=== PATIENT | female | born 1940 | race Caucasian/White ===

== ENCOUNTER 2022-12-06 19:30 | Emergency (ER) | payer OTHER, MEDICARE ==
--- OUTSIDE RECORDS SUMMARY | 2022-12-06 19:33 | XMS REPORT | Continuity of Care Document ---
:1940 Author Organization [facility] Address [address] [facility]. [address] [place] [address] Care Team Providers Name Role Phone Asked, No Pcp Primary Care Physician Unavailable Kevin Mercado MD Attending Clinician Problems This patient has no known problems. Allergies, Adverse Reactions, Alerts This patient has no known allergies or adverse reactions. Social History Social Habit Start Date Stop Date Quantity Comments Source Sexual orientation Method [facility] Sex Assigned At [birth year] Met [facility] 00:00:00 00:00:00 Smoking Status Start Date Stop Date Source Tobacco smoking consumption unknown [facility] Medications This patient has no known medications. Procedures Procedure Date / Time Performed Performing Clinician [facility] e US VASCULAR SCREENING 2022-05-02 18:19[facility] W 2022-05-02 18:16:39 [facility] PHYSICIAN ORDER Plan of Care Planned Activity Planned Date Details Comments Source Future Scheduled 2022-12-06 SHINGLES VACCINES (1 Met [facility] Test 19:32:59 of 2) [code = SHINGLES VACCINES (1 of 2)] Future Scheduled 2022-12-06 65+ PNEUMOCOCCAL [facility] Test 19:32:59 VACCINE (1 - PCV) [code = 65+ PNEUMOCOCCAL VACCINE (1 - PCV)] Future Scheduled 2022-12-06 COVID-19 VACCINE (3 - Me [facility] Test 19:32:59 Moderna series) [code = COVID-19 VACCINE (3 - Moderna series)] Future Scheduled 2022-12-06 INFLUENZA VACCINE (#1) M [facility] Test 19:32:59 [code = INFLUENZA VACCINE (#1)] Encounters Start End Encounter Admission Attending Care Care Encounter Source Date/Time Date/Time Type Type Clinicians Facility Department ID 2022-05-02 2022-05-02 [facility] 1.2.840.1 [id number] Methodi 10:40:18 23:59:00 Encounter Kevin [id number] 3.430.2.7 Hospit a .3.546358 l .8 2022-05-02 2022-05-02 [facility] 1.2.840.1 [id number] Methodi 10:39:59 10:39:59 Encounter Kevin [id number] 3.430.2.7 Hospit a .3.125185 l .8 2022-05-02 2022-05-02 Outpatient [facility] [id number] [place] 00:00:00 00:00:00 KEVIN [address] 2022-05-02 2022-05-02 Outpatient [facility] [id number] [address] [place] [address] 00:00:00 00:00:00 KEVIN [address] 2022-05-02 2022-05-02 Travel 1.2.840.1 [id number] Methodi 00:00:00 00:00:[id number] 3.430.2.7 0.2.7.3.698 spita .3.326100 084.8 l .8 2022-04-10 2022-04-10 Transcribe [facility] 1.2.840.1 [id number] Methodi 00:00:00 00:00:00 Orders Kevin [id number] 3.430.2.7 Hospit a .3.094528 l .8 2022-04-10 2022-04-10 Travel 1.2.840.1 [id number] [id number] Methodi 00:00:00 00:00:[address] 3.430.2.7 0.2.7.3.698 gisela .3.455113 084.8 l .8 Results This patient has no known results.
--- NOTE | 2022-12-06 20:35 | RAD REPORT ---
EXAM DESCRIPTION: CT - Chest For Pe Angio - 12/06/2022 8:07 pm CLINICAL HISTORY: cough,sob COMPARISON: 2013 TECHNIQUE: Dynamically enhanced axial 3 mm thick images of the chest were obtained during administra tion of 100 mL Isovue 370 IV contrast. Coronal and oblique reconstruction images were generated and r eviewed. Exam utilizes a protocol for optimal evaluation of pulmonary arterial tree. Maximum intensity projections 3D imaging was utilized All CT scans are performed using dose optimization technique as appropriate and may include automated exposure control or mA/KV adjustment according to patient size. FINDINGS: A pulmonary embolus is not seen. A thoracic aortic aneurysm is not noted. A pericardial effusion is not seen. 7 x 2 centimeter opacity is present within medial left lower lobe unchanged from prior exam. A branch from the descending thoracic aorta supplies the arterial flow. A vein and and drains into azygos vei n. This is compatible with a sequestration. Mild to moderate patchy opacities are present the left lung. 3 centimeter fluid collection is loculated within the left oblique fissure. IMPRESSION: Negative for a pulmonary embolism. Mild to moderate left pulmonary opacities probably pneumonia Left lower lobe sequestration 3 centimeter fluid collection loculated within the left oblique fissure
--- NOTE | 2022-12-06 21:11 | EDPHYS ---
Physician Documentation [facility] Name: Saima Anders Age: 82 yrs Sex: Female : 1940 Arrival Date: 12/06/2022 Time: 19:30 Bed 9 Private MD: JATIN Physician Mendoza Jeff HPI: 12/06 20:06 This 82 yrs old Female presents to ER via Ambulatory with complaints of ABNORMAL BLOOD kb WORK. 20:07 The patient or guardian reports cough, that is intermittent, described as mild, kb difficulty breathing. Onset: The symptoms/episode began/occurred 2 week(s) ago. Severity of symptoms: At their worst the symptoms were moderate, in the emergency department the symptoms have improved. Modifying factors: The symptoms are alleviated by nothing, the symptoms are aggravated by nothing. Associated signs and symptoms: The patient has no apparent associated signs or symptoms. The patient has not experienced similar symptoms in the past. The patient has not recently seen a physician. Pt reports she has had cough and slight shortness of breath since going to [place] 2 weeks ago. States the symptoms are getting better, but Dr Mercado ordered outpatient labs and x-ray today. States her d-dimer was high so she was told to come to the ER for further evaluation. Historical: - Allergies: 19:47 No Known Allergies; cm10 - PMHx: 19:47 Hypertensive disorder; kidney stones; Basal cell cancer; cm10 - PSHx: 19:47 hysterectomy; Wedge resection; Gastric Bypass; cm10 - Immunization history:: Adult Immunizations up to date. - Social history:: Smoking status: Patient denies any tobacco usage or history of. ROS: 20:04 Constitutional: Negative for fever, chills, and weight loss, kb 20:04 Respiratory: Positive for cough, shortness of breath, 20:04 All other systems are negative, Exam: 20:04 Constitutional: This is a well developed, well nourished patient who is awake, alert, kb and in no acute distress. Head/Face: Normocephalic, atraumatic. ENT: Moist Mucous membranes Cardiovascular: Regular rate Respiratory: Respirations even and unlabored. No increased work of breathing. Talking in full sentences Skin: Warm, dry with normal turgor. Normal color. MS/ Extremity: Pulses equal, no cyanosis. Neurovascular intact. Full, normal range of motion. Neuro: Awake and alert, GCS 15, oriented to person, place, time, and situation. Moves all extremities. Normal gait. Vital Signs: 19:45 BP 167 / 96; Pulse 88; Resp 18 S; Temp 97.8(TE); Pulse Ox 97% on R/A; Weight 71.21 kg; cm10 Height 5 ft. 3 in. ; Pain 2/10; 21:12 BP 158 / 86; Pulse 84; Resp 16; Pulse Ox 98% on R/A; mb9 19:45 Body Mass Index 27.81 (71.21 kg, 160.02 cm) cm10 19:45 Pain Scale: Adult cm10 MDM: 19:50 Patient medically screened. kb 20:04 Data reviewed: vital signs, nurses notes. External Records Reviewed: Outpatient labs: outpatient cbc, bmp and ddimer reviewed. Outpatient radiology: outpatient chest x-ray reviewed. 21:08 Differential Diagnosis: Bronchitis Upper Respiratory Infection Pneumonia Other PE. kb Consideration of Admission/Observation Escalation of care including admission/observation considered. admission considered for pneumonia, but pt is well appearing, afebrile, wants to go home. Management of patient was discussed with the following: Primary Care Provider: Dr Mercado, recommends outpatient follow up and rx for zithromax. Counseling: I had a detailed discussion with the patient and/or guardian regarding the historical points, exam findings, and any diagnostic results supporting the discharge/admit diagnosis, radiology results, the need for outpatient follow up, a family practitioner, to return to the emergency department if symptoms worsen or persist or if there are any questions or concerns that arise at home. 12/06 19:50 Order name: CT Chest For PE Angio; Complete Time: 20:37 kb 12/06 20:50 Order name: Extrem Venous W Compress Geraldo EDMS 12/06 19:50 Order name: IV Start; Complete Time: 19:58 kb Administered Medications: No medications were administered Disposition Summary: 12/06/22 21:10 Discharge Ordered Notes: Location: Home kb Condition: Stable kb Diagnosis - Pneumonia, unspecified organism kb Followup: kb - With: Emergency Department - When: As needed - Reason: Worsening of condition Followup: kb - With: Private Physician - When: 2 - 3 days - Reason: Recheck today's complaints, Continuance of care, Re-evaluation by your physician Discharge Instructions: - Discharge Summary Sheet kb - Community-Acquired Pneumonia, Adult, [id number] kb Forms: - Medication Reconciliation Form kb - Thank You Letter kb - Antibiotic Education kb - Prescription Opioid Use kb - Patient Portal Instructions kb - Leadership Thank You Letter kb Prescriptions: - Zithromax 500 mg Oral Tablet - take 1 tablet ORAL route once daily for 5 days; 5 tablet; Refills: 0, Product kb Selection Permitted Signatures: Dispatcher [employer] EDEly Wolf FNP-Erickson RIVERA-Terra Batista, RN RN cm10 Corrections: (The following items were deleted from the chart) 20:48 20:47 Lower Extremity Arterial Bilat+US.RAD.BRZ ordered. EDMS EDMS
--- NOTE | 2022-12-06 21:11 | ER ---
Nurse's Notes [facility] Name: Saima Anders Age: 82 yrs Sex: Female : 1940 Arrival Date: 12/06/2022 Time: 19:30 Bed 9 Private MD: Diagnosis: Pneumonia, unspecified organism Presentation: 12/06 19:45 Chief complaint: Patient states: was called by Dr. faye to come to the ED for elevated cm10 D-Dimer (2250). Pt states that she has been sick for the last 10 days and has been on abx. Pt reports that she is having shortness of breath, and dry cough. Pt states that she is having left sided "pleurisy type pain." Pt denies chest pain. Coronavirus screen: Vaccine status: Patient reports receiving the 2nd dose of the covid vaccine. Client denies travel out of the [place] in the last 14 days. Ebola Screen: Patient denies travel to an Ebola-affected area in the 21 days before illness onset. No symptoms or risks identified at this time. Initial Sepsis Screen: Does the patient meet any 2 criteria? No. Patient's initial sepsis screen is negative. Does the patient have a suspected source of infection? No. Patient's initial sepsis screen is negative. Risk Assessment: Do you want to hurt yourself or someone else? Patient reports no desire to harm self or others. Onset of symptoms was December 06, 2022. 19:45 Method Of Arrival: Ambulatory cm10 19:45 Acuity: GARTH 3 cm10 Triage Assessment: 19:50 General: Appears in no apparent distress. comfortable, Behavior is calm, cooperative. cm10 Neuro: No deficits noted. Level of Consciousness is awake, alert, obeys commands, Oriented to person, place, time, situation. Historical: - Allergies: 19:47 No Known Allergies; cm10 - PMHx: 19:47 Hypertensive disorder; kidney stones; Basal cell cancer; cm10 - PSHx: 19:47 hysterectomy; Wedge resection; Gastric Bypass; cm10 - Immunization history:: Adult Immunizations up to date. - Social history:: Smoking status: Patient denies any tobacco usage or history of. Screenin:06 [facility] ED Fall Risk Assessment (Adult) History of falling in the last 3 months, mb9 including since admission No falls in past 3 months (0 pts) Confusion or Disorientation No (0 pts) Intoxicated or Sedated No (0 pts) Impaired Gait No (0 pts) Mobility Assist Device Used No (0 pt) Altered Elimination No (0 pt) Score/Fall Risk Level 0 - 2 = Low Risk Oriented to surroundings, Maintained a safe environment, Educated pt \\T\\ family on fall prevention, incl call for assistance when getting out of bed. Abuse screen: Denies threats or abuse. Nutritional screening: No deficits noted. Tuberculosis screening: No symptoms or risk factors identified. Assessment: 20:06 Reassessment: pt taken to CT via stretcher. mb9 21:11 Reassessment: No changes from previously documented assessment. Patient and/or family mb9 updated on plan of care and expected duration. Pain level reassessed. Patient is alert, oriented x 3, equal unlabored respirations, skin warm/dry/pink. Vital Signs: 19:45 BP 167 / 96; Pulse 88; Resp 18 S; Temp 97.8(TE); Pulse Ox 97% on R/A; Weight 71.21 kg; cm10 Height 5 ft. 3 in. ; Pain 2/10; 21:12 BP 158 / 86; Pulse 84; Resp 16; Pulse Ox 98% on R/A; mb9 19:45 Body Mass Index 27.81 (71.21 kg, 160.02 cm) cm10 19:45 Pain Scale: Adult cm10 ED Course: 19:32 Patient arrived in ED. ag3 19:47 Triage completed. cm10 19:50 Ely Dave FNP-C [facility] kb 19:50 Mendoza Jeff MD is Attending Physician. kb 19:50 Arm band placed on Patient placed in an exam room, on a stretcher. cm10 19:58 Inserted saline lock: 22 gauge in left forearm, using aseptic technique. lg3 20:06 Placed in gown. Bed in low position. Call light in reach. Side rails up X 1. Client mb9 placed on continuous cardiac and pulse oximetry monitoring. NIBP monitoring applied. 20:08 CT Chest For PE Angio In Process Unspecified. EDMS 21:11 Michaela Spencer, SUSAN is Primary Nurse. mb9 21:12 Extrem Venous W Compress Geraldo In Process Unspecified. EDMS 21:12 No provider procedures requiring assistance completed. IV discontinued, intact, mb9 bleeding controlled, No redness/swelling at site. Pressure dressing applied. Administered Medications: No medications were administered Medication: 20:06 VIS not applicable for this client. [email or web address] Outcome: 21:10 Discharge ordered by . óscar 21:18 Discharged to home ambulatory, mb9 21:18 Condition: stable 21:18 Discharge instructions given to patient, Instructed on discharge instructions, follow up and referral plans. Demonstrated understanding of instructions, follow-up care, medications, Prescriptions given X 1, 21:19 Patient left the ED. [email or web address] Signatures: Dispatcher [employer] EDMS Ely Dave, HOURLY ASSOCIATE-C HOURLY ASSOCIATE-Ckb Teresa Trammell Lacie, RN RN lg3 Michaela Spencer RN RN mb9 Terra Melvin RN RN cm10
--- NOTE | 2022-12-06 21:23 | RAD REPORT ---
EXAM DESCRIPTION: USExtrem Venous W Compress Bil12/06/2022 9:10 pm CLINICAL HISTORY: Leg pain elevated D-dimer COMPARISON: none FINDINGS: The common femoral, superficial femoral, greater saphenous, popliteal and posterior tibial veins bilaterally are compressible and demonstrate augmentation. Doppler demonstrates good flow. Grayscale, color and spectral analysis performed on all vessels IMPRESSION: No evidence of deep venous thrombosis involving either lower extremity.
[2022-12-06 22:07] VITALS: TEMP 97.8
[2022-12-06 22:08] VITALS: BP 158/86; O2SAT 98
== END 2022-12-06 21:19 | disposition home or self-care (01) ==
LOC: ER 19:30
DX: J18.9 Pneumonia, unspecified organism (principal); R79.89 Other specified abnormal findings of blood chemistry; I10 Essential (primary) hypertension
CPT/HCPCS: 71275; 93970; Q9967; 99284

== ENCOUNTER 2022-12-08 08:28 | Inpatient (IN) | payer OTHER, MEDICARE ==
--- OUTSIDE RECORDS SUMMARY | 2022-12-08 08:32 | XMS REPORT | Continuity of Care Document ---
:1940 Author Organization [facility] Address [address] [facility]. [address] [place] [address] Care Team Providers Name Role Phone Asked, No Pcp Primary Care Physician Unavailable Kevin Mercado MD Attending Clinician Problems This patient has no known problems. Allergies, Adverse Reactions, Alerts This patient has no known allergies or adverse reactions. Social History Social Habit Start Date Stop Date Quantity Comments Source Sexual orientation Method [facility] Sex Assigned At [birth year] Met [facility] 00:00:00 00:00:00 Smoking Status Start Date Stop Date Source Tobacco smoking consumption unknown [facility] Medications This patient has no known medications. Procedures Procedure Date / Time Performed Performing Clinician Sour e US VASCULAR SCREENING 2022-05-02 18:19:30 [facility]US CT HEART SCAN PLUS W 2022-05-02 18:16:39 [facility] PHYSICIAN ORDER Plan of Care Planned Activity Planned Date Details Comments Source Future Scheduled 2022-12-06 SHINGLES VACCINES (1 Met [facility] Test 19:32:59 of 2) [code = SHINGLES VACCINES (1 of 2)] Future Scheduled 2022-12-06 65+ PNEUMOCOCCAL [facility] Test 19:32:59 VACCINE (1 - PCV) [code = 65+ PNEUMOCOCCAL VACCINE (1 - PCV)] Future Scheduled 2022-12-06 COVID-19 VACCINE (3 - Me [facility] Test 19:32:59 Moderna series) [code = COVID-19 VACCINE (3 - Moderna series)] Future Scheduled 2022-12-06 INFLUENZA VACCINE (#1) M [facility] Test 19:32:59 [code = INFLUENZA VACCINE (#1)] Encounters Start End Encounter Admission Attending Care Care Encounter Source Date/Time Date/Time Type Type Clinicians Facility Department ID 2022-05-02 2022-05-02 [facility], 1.2.840.1 [id number] Methodi 10:40:18 23:59:00 Encounter Kevin [id number] 3.430.2.7 Hospit a .3.326730 l .8 2022-05-02 2022-05-02 [facility] 1.2.840.1 [id number] Methodi 10:39:59 10:39:59 Encounter Kevin [id number] 3.430.2.7 Hospit a .3.047005 l .8 2022-05-02 2022-05-02 Travel 1.2.840.1 [id number] [id number] Methodi 00:00:00 00:00:[id number] 3.430.2.7 0.2.7.3.698 Ho spita .3.641269 084.8 l .8 2022-04-10 2022-04-10 Travel 1.2.840.1 [id number] Methodi 00:00:00 00:00:[address] 3.430.2.7 0.2.7.3.698 Ho spita .3.489562 084.8 l .8 2022-04-10 2022-04-10 Transcribe [facility] 1.2.840.1 [id number] Methodi 00:00:00 00:00:00 Orders Kevin [id number] 3.430.2.7 Hospit a .3.112571 l .8 Results This patient has no known results.
[2022-12-08 09:05] LABS: Absolute Lymphocytes (CBC) 1.1 K/uL (0.7-4.9); Hematocrit 37.3 % (36.0-45.0); MCV 92.8 fL (80-100); MPV 5.9 fL (7.6-11.3); Platelets 519 thou/uL (152-406); RBC Red Blood Cell Count 4.02 M/uL (3.86-4.86)
[2022-12-08 09:25] LABS: Bilirubin Direct 0.1 mg/dL (0-0.2); Bilirubin Indirect, Calculated 0.4 mg/dL (0.2-0.8); Bilirubin Total 0.5 mg/dL (0.2-1.0); Potassium 3.8 mEq/L (3.5-5.1); Protein, Total 7.3 g/dL (6.4-8.2); Troponin High Sensitivity 11.3 pg/mL (<58.9)
--- NOTE | 2022-12-08 10:12 | RAD REPORT ---
EXAM DESCRIPTION: RADChest Single View12/08/2022 9:33 am CLINICAL HISTORY: COUGH COMPARISON: Chest Pa And Lat (2 Views) dated 12/06/2022; Chest Pa And Lat (2 Views) dated 04/27/2021; Chest Pa And Lat (2 Views) dated 08/24/2016; ABDOMEN 1 VIEW KUB dated 10/07/2014; Chest For Pe Angio blaze ed 12/06/2022 TECHNIQUE: Portable AP view of the chest. FINDINGS: Patchy left lung opacities, with increasing consolidation at the left lung base since the prior exam. A component of small effusion may be present. No pneumothorax or right effusion. The car diomediastinal contours are unremarkable. IMPRESSION: Progressive consolidative opacities in the left lung base, possibly with a small compone nt of effusion, may relate to superimposed/worsening pneumonia.
[2022-12-08 10:16] LABS: Blood Morphology Comment NOT SEEN (NOT SEEN); Platelet Estimate ADEQ; Toxic Granulation PRESENT; White Blood Cell Scan OK (OK)
--- NOTE | 2022-12-08 10:17 | ER ---
Nurse's Notes [facility] Name: Saima Anders Age: 82 yrs Sex: Female : 1940 Arrival Date: 12/08/2022 Time: 08:28 Bed 6 Private MD: Diagnosis: Pneumonia, unspecified organism;Sepsis, unspecified organism Presentation: 12/08 08:35 Chief complaint: Patient states: Shortness of breath and CP since 399, seen on jl7 Sunday for 2250 D-Dimer, CT showed pneumonia. Coronavirus screen: At this time, the client does not indicate any symptoms associated with coronavirus-19. Ebola Screen: No symptoms or risks identified at this time. Initial Sepsis Screen: Does the patient meet any 2 criteria? No. Patient's initial sepsis screen is negative. Does the patient have a suspected source of infection? No. Patient's initial sepsis screen is negative. Risk Assessment: Do you want to hurt yourself or someone else? Patient reports no desire to harm self or others. Onset of symptoms was December 08, 2022 at 04:00. 08:35 Method Of Arrival: Ambulatory [facility] 08:35 Acuity: GARTH 2 jl7 Triage Assessment: 08:37 General: Appears in no apparent distress. uncomfortable, Behavior is cooperative, jl7 appropriate for age. Pain: Complains of pain in left breast. Cardiovascular: Patient's skin is warm and dry. Historical: - Allergies: 08:37 No Known Allergies; jl7 - PMHx: 08:37 Basal cell cancer; Hypertensive disorder; Kidney stones; jl7 - PSHx: 08:37 Gastric Bypass; hysterectomy; Wedge resection; jl7 - Immunization history:: Adult Immunizations unknown. - Social history:: Smoking status: Patient denies any tobacco usage or history of. - Family history:: not pertinent. Screenin:00 [facility] ED Fall Risk Assessment (Adult) History of falling in the last 3 months, ko1 including since admission No falls in past 3 months (0 pts) Confusion or Disorientation No (0 pts) Intoxicated or Sedated No (0 pts) Impaired Gait No (0 pts) Mobility Assist Device Used No (0 pt) Altered Elimination No (0 pt) Score/Fall Risk Level 0 - 2 = Low Risk Oriented to surroundings, Maintained a safe environment, Educated pt \T\ family on fall prevention, incl call for assistance when getting out of bed, Assessed \T\ reinforced patient's understanding of fall precautions, Provided non-skid footwear, Hourly rounding (assess needs \T\ fall precautionary measures) done, Used ambulatory aids as needed (educated on \T\ assisted with), Used gait belt as appropriate. Abuse screen: Denies threats or abuse. Denies injuries from another. Nutritional screening: No deficits noted. Tuberculosis screening: No symptoms or risk factors identified. Assessment: 09:00 General: Appears in no apparent distress. comfortable, Behavior is calm, cooperative, ko1 appropriate for age. Pain: Pain does not radiate. Pain began gradually. Neuro: No deficits noted. Cardiovascular: Reports chest pain, shortness of breath. Respiratory: Reports shortness of breath on exertion. GI: No deficits noted. : No deficits noted. EENT: No deficits noted. Derm: No deficits noted. Musculoskeletal: No deficits noted. 12:19 Reassessment: attempted to call report, no answer. ko1 Vital Signs: 08:35 BP 177 / 89; Pulse 97; Resp 22; Pulse Ox 100% ; Weight 71.21 kg; Height 5 ft. 3 in. ; jl7 Pain 4/10; 09:00 BP 160 / 71; Pulse 81; Resp 16; Pulse Ox 98% ; ko1 12:46 BP 164 / 81; Pulse 78; Resp 16; Pulse Ox 99% ; ko1 08:35 Body Mass Index 27.81 (71.21 kg, 160.02 cm) jl7 08:35 Pain Scale: Adult jl7 ED Course: 08:34 Patient arrived in ED. jl7 08:35 Yamini Colon, SUSAN is Primary Nurse. ko1 08:35 Luis Ceja MD is Attending Physician. rt 08:37 Triage completed. jl7 08:37 Arm band placed on right wrist. jl7 08:57 Basic Metabolic Panel Sent. cp4 08:57 CBC with Diff Sent. cp4 08:57 LFT's Sent. cp4 08:57 Magnesium Sent. cp4 08:57 NT PRO-BNP Sent. cp4 08:57 Troponin HS Sent. cp4 08:59 Inserted saline lock: 20 gauge in right antecubital area, using aseptic technique. cp4 Blood collected. 09:00 Patient has correct armband on for positive identification. Placed in gown. Bed in low ko1 position. Call light in reach. Side rails up X2. Provided Education on: na. Client placed on continuous cardiac and pulse oximetry monitoring. NIBP monitoring applied. night monitor on. Door closed. Noise minimized. Lights dimmed. Warm blanket given. 09:00 Patient maintains SpO2 saturation greater than 95% on room air. ko1 09:33 XRAY Chest (1 view) In Process Unspecified. EDMS 10:16 Kevin Mercado MD is Hospitalizing Provider. rt 11:44 SARS RAPID Sent. ph 12:46 No provider procedures requiring assistance completed. Patient admitted, IV remains in ko1 place. Administered Medications: 11:15 Drug: levofloxacin IVPB 750 mg 150 ml IVPB once over 90 mins Volume: 150 ml; Route: ph IVPB; Infused Over: 90 mins; Site: right antecubital; 11:44 Drug: NS 0.9% IV 1000 ml IV at 1 bolus Per protocol; 1000 mL bolus Route: IV; Rate: 1 ph bolus; Site: right antecubital; Medication: 12:46 VIS not applicable for this client. ko1 Outcome: 10:17 Decision to Hospitalize by Provider. rt 12:46 Admitted to Med/surg accompanied by tech, via wheelchair, room 210, with chart, Report ko1 called to [facility] 12:46 Condition: stable 12:46 Instructed on the need for admit, Demonstrated understanding of instructions, 12:50 Patient left the ED. ko1 Signatures: Dispatcher [employer] EDMS Aide Caruso RN RN ph Danie Joseph RN RN jl7 Yamini Colon RN RN ko1 Luis Ceja MD MD rt Migdalia Roland cp4
--- NOTE | 2022-12-08 10:17 | EDPHYS ---
Physician Documentation [facility] Name: Saima Anders Age: 82 yrs Sex: Female : 1940 Arrival Date: 12/08/2022 Time: 08:28 Bed 6 Private MD: ED Physician Luis Ceja HPI: 12/08 09:22 This 82 yrs old Female presents to ER via Ambulatory with complaints of Chest Pain, rt Shortness Of Breath. 09:22 Patient presents to the ED with chest pain, shortness of breath starting at about 4 rt AM., She was recently seen in the ED with a CT scan that was negative for pulmonary embolism, positive for a pneumonia. She was described azithromycin, its not yet filled it, however, still taking Augmentin for this. Her symptoms have significantly improved after sitting upright. She denies other acute complaints at this time, symptoms are moderate in severity, no other aggravating or alleviating factors.. Historical: - Allergies: 08:37 No Known Allergies; jl7 - PMHx: 08:37 Basal cell cancer; Hypertensive disorder; Kidney stones; jl7 - PSHx: 08:37 Gastric Bypass; hysterectomy; Wedge resection; jl7 - Immunization history:: Adult Immunizations unknown. - Social history:: Smoking status: Patient denies any tobacco usage or history of. - Family history:: not pertinent. ROS: 09:22 Constitutional: Negative for fever, chills, and weight loss, Abdomen/GI: Negative for rt abdominal pain, nausea, vomiting, diarrhea, and constipation, MS/Extremity: Negative for injury and deformity, Skin: Negative for injury, rash, and discoloration, Neuro: Negative for headache, weakness, numbness, tingling, and seizure, Psych: Negative for depression, anxiety, suicide ideation, homicidal ideation, and hallucinations, 09:22 Cardiovascular: Positive for chest pain, Negative for edema, 09:22 Respiratory: Positive for cough, shortness of breath, Exam: :27 ECG was reviewed by the Attending Physician. rt 09:27 Respiratory: Crackles at the left lung base, no respiratory distress, Vital Signs: 08:35 BP 177 / 89; Pulse 97; Resp 22; Pulse Ox 100% ; Weight 71.21 kg; Height 5 ft. 3 in. ; jl7 Pain 4/10; 09:00 BP 160 / 71; Pulse 81; Resp 16; Pulse Ox 98% ; ko1 12:46 BP 164 / 81; Pulse 78; Resp 16; Pulse Ox 99% ; ko1 08:35 Body Mass Index 27.81 (71.21 kg, 160.02 cm) jl7 08:35 Pain Scale: Adult jl7 MDM: 08:38 Patient medically screened. rt 10:57 Differential diagnosis: Pneumonia, pneumothorax, CHF. Data reviewed: vital signs, rt nurses notes, lab test result(s), EKG, radiologic studies. Consideration of Admission/Observation Patient was admitted/placed on observation. Management of patient was discussed with the following: Primary Care Provider: Agrees to admit. I considered the following discharge prescriptions or medication management in the emergency department Medications were administered in the Emergency Department. See MAR. Independent interpretation of the following test(s) in the Emergency Department X-Ray: My interpretation is Worsening consolidation seen on interpretation of the x-ray images. Test considered but Not performed: CT: CT angiogram a few days ago was negative for PE, repeat scan not indicated. Care significantly affected by the following chronic conditions: Hypertension. Counseling: I had a detailed discussion with the patient and/or guardian regarding the historical points, exam findings, and any diagnostic results supporting the discharge/admit diagnosis, lab results, radiology results, the need for further work-up and treatment in the hospital. ED course: Patient did not initially meet SIRS criteria until labs were obtained and white blood count was elevated, at that time, blood cultures were drawn, broad-spectrum antibiotics were given. Patient to be admitted for further care.. 12/08 08:45 Order name: Basic Metabolic Panel; Complete Time: 09:27 rt 12/08 08:45 Order name: CBC with Diff; Complete Time: 10:19 rt 12/08 08:45 Order name: LFT's; Complete Time: 09:27 rt 12/08 08:45 Order name: Magnesium; Complete Time: 09:27 rt 12/08 08:45 Order name: NT PRO-BNP; Complete Time: 09:27 rt 12/08 08:45 Order name: Troponin HS; Complete Time: 09:27 rt 12/08 10:14 Order name: Blood Culture Adult (2) rt 12/08 10:14 Order name: Lactate w/ 2H reflex if indic. rt 12/08 10:14 Order name: Protime (+inr) rt 12/08 10:14 Order name: Ptt, Activated rt 12/08 10:17 Order name: CBC Smear Scan; Complete Time: 10:19 EDMS 12/08 11:01 Order name: SARS RAPID rt 12/08 11:55 Order name: SARS-COV-2 Antigen Rapid EDMS 12/08 08:45 Order name: XRAY Chest (1 view); Complete Time: 10:13 rt 12/08 10:20 Order name: CONS Physician Consult EDMS 12/08 08:45 Order name: Cardiac monitoring; Complete Time: 08:47 rt 12/08 08:45 Order name: IV Saline Lock; Complete Time: 08:57 rt 12/08 08:45 Order name: Labs collected and sent; Complete Time: 08:57 rt 12/08 08:45 Order name: O2 Per Protocol; Complete Time: 08:47 rt 12/08 08:45 Order name: O2 Sat Monitoring; Complete Time: 08:47 rt EC:27 Rate is 83 beats/min. Rhythm is regular. QRS [place] is Normal. [place] interval is normal. QRS rt interval is normal. QT interval is normal. No Q waves. Interpreted by me. Administered Medications: 11:15 Drug: levofloxacin IVPB 750 mg 150 ml IVPB once over 90 mins Volume: 150 ml; Route: ph IVPB; Infused Over: 90 mins; Site: right antecubital; 11:44 Drug: NS 0.9% IV 1000 ml IV at 1 bolus Per protocol; 1000 mL bolus Route: IV; Rate: 1 ph bolus; Site: right antecubital; Disposition Summary: 12/08/22 10:17 Hospitalization Ordered Notes: Hospitalization Status: Inpatient Admission rt Provider: Kevin Mercado rt Location: Telemetry/[facility] (Inpatient) rt Condition: Stable rt Problem: an ongoing problem rt Symptoms: have improved rt Bed/Room Type: Standard rt Room Assignment: 210(12/08/22 12:07) eb Diagnosis - Pneumonia, unspecified organism rt - Sepsis, unspecified organism rt Forms: - Medication Reconciliation Form rt - SBAR form rt - Leadership Thank You Letter rt Signatures: Dispatcher [employer] EDAide Carney RN RN ph Leal, Jahala, RN RN will7 Cathy Hand Ryan, MD MD rt Corrections: (The following items were deleted from the chart) 10:08 10:06 ACETAMINOPHEN+C.LAB.BRZ ordered. EDMS EDMS 10: 10:06 Acute Hepatitis Panel+SC.LAB.BRZ ordered. EDMS EDMS 12:07 10:17 rt eb
[2022-12-08] MEDS ORDERED: NA CHLORIDE 0.9% 1,000 ML ONE (11:02)
[2022-12-08] MEDS ORDERED: Levofloxacin 750mg IV 750 MG/150 ML BAG IV ONE (11:02)
[2022-12-08 11:22] LABS: Protime INR 1.08
[2022-12-08 11:54] LABS: SARS-CoV-2 Antigen Rapid Res Negative (Negative)
[2022-12-08 13:19] VITALS: O2SAT 98
[2022-12-08] MEDS ORDERED: ALBUTEROL 2.5 MG/3 ML NEB SOL NEB SCH (14:00)
[2022-12-08 14:20] VITALS: BMI 27.8
--- NOTE | 2022-12-08 17:07 | P.SSS ---
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 HER D DIMER WAS HIGH AT 2200 SO I SENT HER TO ER. ER DID CT ANGIOGRAM TO RULE OUT PE AND WE ADDED ZITHROMAAX SHE HAS A PNEUMONIA ON ONE SIDE THAT IS ATYIPAL. SHE DID NOT IMPROVE IN A DAY SO SHE CAME BACT TO ER AND NOW SHE IS HOSPITAL WITH FAILED OUTPATIENT THERAPY. HER WBC COUNT WAS NORMAL YESTERDAY BUT HIGH AT 16K TODAY. SHE HAS NO SPUTUM ANY LONGER. Allergies No Known Drug Allergies Allergy (Unverified 03/13/14 16:35) Unknown bacitracin [From Neosporin ([id number])] Adverse Reaction (Verified 01/26/14 12:59) Rash bacitracin zinc [From Neosporin ([id number])] Adverse Reaction (Verified 01/26/14 12:59) Rash neomycin sulfate [From Neosporin ([id number])] Adverse Reaction (Verified 01/26/14 12:59) Rash polymyxin B [From Neosporin ([id number])] Adverse Reaction (Verified 01/26/14 12:59) Rash Home Medications: Calcium Carb, Citrate/Vit D3 [Citracal-D3 ER 600 mg-500 Unit] 1 tab PO DAILY 09/06/13 Multivit-Min/FA/Lycopene/Lut [Centrum Silver Tablet] 1 tab PO DAILY 09/06/13 Zolpidem Tartrate 5 mg PO BEDTIME PRN PRN 09/06/13 carvediloL [Coreg*] 12.5 mg PO BID 01/26/14 Amlodipine Besylate [Norvasc] 5 mg PO DAILY 12/08/22 Aspirin 81 mg PO DAILY 12/08/22 Cyanocobalamin (Vitamin B-12) [Cyanocobalamin Injection] 1,000 mg IM DIRECTED 12/08/22 Rosuvastatin Calcium [Crestor] 10 mg PO BEDTIME 12/08/22 Zolpidem Tartrate 5 mg PO BEDTIME 12/08/22 - Past Medical/Surgical History Has patient received pneumonia vaccine in the past: Yes Diabetic: No -: Hyperlipidemia -: GERD -: Stomach band/staple 1993 -: Gastric Bypass August 05, 2013 -: L. wrist fx -: Hysterectomy -: Abdomoplasty -: Wedge resection L. lung -: Basal cell CA (face and neck) -: Lumpectomy (L. breast) - Social History Smoking Status: Never smoker Alcohol use: Yes CD- Drugs: No Caffeine use: No Place of Residence: Home Physical Examination - Vital Signs Temperature: 97.6 F Blood Pressure: 172/78 Pulse: 100 Respirations: 17 Pulse Ox (%): 94 - Physical Exam General: Alert, In no apparent distress HEENT: Atraumatic, PERRLA, Mucous membr. moist/pink, EOMI, Sclerae nonicteric Neck: Supple, 2+ carotid pulse no bruit, No LAD, Without JVD or thyroid abnormality Respiratory: Crackles/rales Cardiovascular: Regular rate/rhythm, Normal S1 S2 Gastrointestinal: Normal bowel sounds, No tenderness Musculoskeletal: No tenderness Integumentary: No rashes Neurological: Normal gait, Normal speech, Normal strength at 5/5 x4 extr, Normal tone, Normal affect Lymphatics: No axilla or inguinal lymphadenopathy - Studies Laboratory Data (last 24 hrs) 12/08/22 12/08/22 08:56 08:56 WBC 16.00 H Hgb 12.6 Hct 37.3 Plt Count 519 H Sodium 134 L Potassium 3.8 BUN 9 Creatinine 0.86 Glucose 125 H Magnesium 2.0 Total Bilirubin 0.5 AST 30 ALT 44 Alkaline Phosphatase 113 - Diagnosis (Problem(s)) (1) Bacterial pneumonia Current Visit: Yes Status: Acute Plan: SHE IS GIVEN LEVAQUIN IV SPUTUM IS NOT AVILABLE TO CULTURE IF STABLE WILL GO HOME IN AM. NEBS STARTED AVOID STEROIDS THERE IN NO ACUTE DYSPNEA OR WHEEZING. - Disposition Disposition: ROUTINE DISCHARGE
[2022-12-08 17:14] LABS: Specific Gravity 1.011 (1.005-1.030); Urine Bacteria None Seen /HPF (<20); Urine Bilirubin NEGATIVE (Negative); Urine Blood Trace (Negative); Urine Clarity Turbid (Clear); Urine Color Light-Yellow (Yellow); Urine Glucose NEGATIVE (Negative); Urine Mucus Slight /HPF (None Seen); Urine Protein NEGATIVE (Negative); Urine Urobilinogen Normal (Normal); Urine pH 7.5 (5.0-7.0)
[2022-12-08] MEDS ORDERED: Levofloxacin500mg IV 500 MG/100 ML BAG IV SCH (18:00)
[2022-12-08] MEDS: ALBUTEROL 2.5 MG/3 ML NEB SOL NEB SCH ×2 (19:00→20:00)
[2022-12-08] MEDS: carvediloL 12.5 MG TAB PO SCH (20:47)
[2022-12-08] MEDS: ZOLPIDEM TARTRATE 5 MG TABLET PO SCH (20:47)
[2022-12-08] MEDS: ROSUVASTATIN 10 MG TAB PO SCH (20:49)
[2022-12-09] MEDS: ALBUTEROL 2.5 MG/3 ML NEB SOL NEB SCH ×4 (00:30→19:35)
[2022-12-09 03:23] LABS: Absolute Lymphocytes (CBC) 1.4 K/uL (0.7-4.9); Lymphocytes % 16.2 % (15.3-44.8); MCV 91.4 fL (80-100); MPV 6.3 fL (7.6-11.3); Platelets 462 thou/uL (152-406)
[2022-12-09 03:37] LABS: Albumin 2.3 g/dL (3.4-5.0); Bilirubin Total 0.4 mg/dL (0.2-1.0); Potassium 3.6 mEq/L (3.5-5.1); Protein, Total 6.4 g/dL (6.4-8.2)
[2022-12-09] MEDS: ASPIRIN 81 MG CHEWABLE TABLET PO SCH (08:41)
[2022-12-09] MEDS: CALCIUM CARB 500MG/VIT D 200 IU TAB PO SCH (08:42)
[2022-12-09] MEDS: ENOXAPARIN 40 MG/0.4 ML SQ SCH (08:42)
[2022-12-09] MEDS: Levofloxacin500mg IV 500 MG/100 ML BAG IV SCH (08:43)
[2022-12-09] MEDS: AMLODIPINE 5 MG TAB PO SCH (08:43)
[2022-12-09] MEDS: carvediloL 12.5 MG TAB PO SCH ×2 (08:45→19:59)
--- NOTE | 2022-12-09 10:33 | P.CNS ---
Date of Consult: 12/09/22 Reason for Consult: Pneumonia Chief Complaint: SOB pneumonia History of Present Illness: Pt is 82 yrs of age sick for a [place] went to Er Tx wtih with Augmentin. 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 X smoker heavy quit 2006 Feeling much better now Allergies No Known Drug Allergies Allergy (Unverified 03/13/14 16:35) Unknown Home Medications: Calcium Carb, Citrate/Vit D3 [Citracal-D3 ER 600 mg-500 Unit] 1 tab PO DAILY 09/06/13 Multivit-Min/FA/Lycopene/Lut [Centrum Silver Tablet] 1 tab PO DAILY 09/06/13 Zolpidem Tartrate 5 mg PO BEDTIME PRN PRN 09/06/13 carvediloL [Coreg*] 12.5 mg PO BID 01/26/14 Amlodipine Besylate [Norvasc] 5 mg PO DAILY 12/08/22 Aspirin 81 mg PO DAILY 12/08/22 Cyanocobalamin (Vitamin B-12) [Cyanocobalamin Injection] 1,000 mg IM DIRECTED 12/08/22 Rosuvastatin Calcium [Crestor] 10 mg PO BEDTIME 12/08/22 Zolpidem Tartrate 5 mg PO BEDTIME 12/08/22 - Past Medical/Surgical History Diabetic: No -: Hyperlipidemia -: GERD -: Stomach band/staple 1993 -: Gastric Bypass August 05, 2013 -: L. wrist fx -: Hysterectomy -: Abdomoplasty -: Wedge resection L. lung -: Basal cell CA (face and neck) -: Lumpectomy (L. breast) - Social History Alcohol use: Yes CD- Drugs: No Caffeine use: No Place of Residence: Home Review of Systems 10-point ROS is otherwise unremarkable Physical Examination Temp Pulse Resp BP Pulse Ox 96.8 F 89 18 145/72 H 96 12/09/22 08:00 12/09/22 08:43 12/09/22 08:00 12/09/22 08:43 12/09/22 08:00 General: Alert, In no apparent distress, Oriented x3 Neck: Supple Respiratory: Clear to auscultation bilaterally Cardiovascular: No edema, Regular rate/rhythm, Normal S1 S2 Gastrointestinal: Normal bowel sounds, Soft and benign, Non-distended Musculoskeletal: No clubbing, No swelling, No contractures Integumentary: No rashes, No breakdown - Problems (1) Bacterial pneumonia Current Visit: Yes Status: Acute Plan: pt is 82 yrs of age AW penumonia LLL. Volume loss from prev wedge rsection. former heavy smoker quit n 2006 sick for a week. Much better now. Ct rev. WBC decrased. VS stabl/ No prior HXof COPD/ CW levaquin agree with DC alexis AM. Loculated area left base Stable for DC
--- NOTE | 2022-12-09 14:42 | P.PN ---
Subjective Date of Service: 12/09/22 Chief Complaint: SOB pneumonia Subjective: Improving SHE IS LOT BETTER. STILL SOME WEAKNESS AND DYSPNEA. NO PAIN. Review of Systems 10-point ROS is otherwise unremarkable General: Weakness Respiratory: Shortness of Breath Physical Examination - Vital Signs Temperature: 96.8 F Blood Pressure: 145/72 Pulse: 89 Respirations: 18 Pulse Ox (%): 96 - Physical Exam General: Oriented x3, Mild distress HEENT: Atraumatic, PERRLA, EOMI Neck: Supple, JVD not distended Respiratory: Diminished, Crackles/rales Cardiovascular: Regular rate/rhythm, Normal S1 S2 Gastrointestinal: Normal bowel sounds, No tenderness Musculoskeletal: No tenderness Integumentary: No rashes Neurological: Normal speech, Normal tone, Normal affect Lymphatics: No axilla or inguinal lymphadenopathy - Studies Medications List Reviewed: Yes Assessment And Plan - Current Problems (Diagnosis) (1) Bacterial pneumonia Current Visit: Yes Status: Acute Plan: SHE IS GIVEN LEVAQUIN IV SPUTUM IS NOT AVILABLE TO CULTURE IF STABLE WILL GO HOME IN AM. NEBS STARTED AVOID STEROIDS THERE IN NO ACUTE DYSPNEA OR WHEEZING. STABLE CONTINUE ABX AND NEBS. MAY GO HOME IN AM.
[2022-12-09] MEDS: ROSUVASTATIN 10 MG TAB PO SCH (19:58)
[2022-12-09] MEDS: ZOLPIDEM TARTRATE 5 MG TABLET PO SCH (20:02)
[2022-12-10] MEDS: ALBUTEROL 2.5 MG/3 ML NEB SOL NEB SCH ×2 (02:15→07:50)
[2022-12-10] MEDS: Levofloxacin500mg IV 500 MG/100 ML BAG IV SCH (08:16)
[2022-12-10] MEDS: ENOXAPARIN 40 MG/0.4 ML SQ SCH (08:17)
[2022-12-10] MEDS: CALCIUM CARB 500MG/VIT D 200 IU TAB PO SCH (08:18)
[2022-12-10] MEDS: ASPIRIN 81 MG CHEWABLE TABLET PO SCH (08:18)
[2022-12-10] MEDS: AMLODIPINE 5 MG TAB PO SCH (08:18)
[2022-12-10] MEDS: carvediloL 12.5 MG TAB PO SCH (08:18)
[2022-12-10 08:19] VITALS: BP 123/60
[2022-12-10 08:28] VITALS: TEMP 98
--- NOTE | 2022-12-10 21:19 | P.PN ---
Subjective Date of Service: 12/10/22 Chief Complaint: SOB pneumonia Subjective: Improving SHE IS LOT BETTER. STILL SOME WEAKNESS AND DYSPNEA. NO PAIN. DIMITRI IS FEELING GREAT ON LEVAQUIN. SHE IS STABLE TO GO HOME AND FU AT OFFICE. Physical Examination - Vital Signs Temperature: 98.0 F Blood Pressure: 123/60 Pulse: 87 Respirations: 18 Pulse Ox (%): 94 - Studies Medications List Reviewed: Yes Assessment And Plan - Current Problems (Diagnosis) (1) Bacterial pneumonia Status: Acute Plan: SHE IS GIVEN LEVAQUIN IV SPUTUM IS NOT AVILABLE TO CULTURE IF STABLE WILL GO HOME IN AM. NEBS STARTED AVOID STEROIDS THERE IN NO ACUTE DYSPNEA OR WHEEZING. STABLE CONTINUE ABX AND NEBS. MAY GO HOME IN AM.
--- NOTE | 2022-12-11 12:26 | EKG ---
Test Date: 2022-12-08 Test Time: 08:33:50 Operation Manager: CHRIS MEASUREMENT RESULTS: Intervals: Rate: 83 MA: 164 QRSD: 86 QT: 368 QTc: 432 [place]: P: 60 MA: 164 QRS: 66 T: 88 INTERPRETIVE STATEMENTS: Normal sinus rhythm Nonspecific ST abnormality Abnormal ECG Compared to ECG 09/07/2013 07:56:31 ST (T wave) deviation now present Electronically Signed On 12-11-22 12:19:06 CDT by Luis Frias
== END 2022-12-10 10:45 | disposition home or self-care (01) | DRG 871 ==
LOC: ER 08:28 → ERHOLD 10:18 → 2ND 12:21
PROVIDERS: ADMIT Internal Medicine; ATTEND Internal Medicine
DX: A41.9 Sepsis, unspecified organism (principal); J15.9 Unspecified bacterial pneumonia; E78.5 Hyperlipidemia, unspecified; K21.9 Gastro-esophageal reflux disease without esophagitis; Z88.8 Allergy status to other drugs, medicaments and biological substances; Z79.82 Long term (current) use of aspirin; Z98.84 Bariatric surgery status; Z90.710 Acquired absence of both cervix and uterus; Z79.899 Other long term (current) drug therapy; Z87.891 Personal history of nicotine dependence; Z20.822 Contact with and (suspected) exposure to COVID-19
CPT/HCPCS: 36415; 71045; 71046; 71275; 80048; 80053; 80061; 80076; 81001; 82306; 82607; 82728; 83036; 83605; 83735; 83880; 84443; 84484; 85025; 85379; 85610; 85730; 87040; 87811; 93005; 93970; 96374; 99284; 99285; J1650; J7030; J7613; Q9967

== ENCOUNTER 2024-05-14 09:42 | Inpatient (IN) | payer OTHER, MEDICARE ==
--- NOTE | 2024-05-14 10:08 | RAD REPORT ---
EXAMINATION: ONE VIEW CHEST XR CLINICAL INDICATION: Cough;Dyspnea TECHNIQUE: Frontal chest projection is submitted. Examination is limited by patient positioning and t echnique. COMPARISON: 12/08/2022 FINDINGS: Moderate sized opacity left midlung laterally as well as medial left lung base likely pneumonia. Righ t lung is grossly clear. The heart is upper limit of normal in size. No displaced fractures identified. Follow-up imaging until clearance recommended.
[2024-05-14 11:21] LABS: Absolute Lymphocytes (CBC) 0.4 K/uL (0.7-4.9); Absolute Monocytes 0.3 K/uL (0.1-1.3); Absolute Neutrophil 5.5 K/uL (1.8-8.0); Basophils % 0.1 % (0-1.3); Hematocrit 41.7 % (36.0-45.0); Hemoglobin 14.2 g/dL (12.0-15.0); Lymphocytes % 5.7 % (15.3-44.8); MCH 32.5 pg (27.0-35.0); MCV 95.4 fL (80-100); MPV 7.1 fL (7.6-11.3); Monocytes % 5.5 % (3.3-12.3); Neutrophils % 88.7 % (41.7-73.7); Platelets 282 thou/uL (152-406); RBC Red Blood Cell Count 4.37 M/uL (3.86-4.86); Red Cell Distribution Width 13.5 % (12.1-15.2)
[2024-05-14 11:25] LABS: PT Prothrombin Time 11.1 SECONDS (10-13.0); PTT, Activated Partial Thromb 28.8 SECONDS (27.2-37.4); Protime INR 0.97
[2024-05-14 11:37] LABS: Albumin 3.4 g/dL (3.4-5.0); Albumin/Globulin Ratio 1.1 (1.1-1.8); Anion Gap 11.1 mEq/L (5.0-15.0); Bilirubin Total 0.8 mg/dL (0.2-1.0); Globulin 3.2 g/dL (2.3-3.5); Potassium 4.1 mEq/L (3.5-5.1); Protein, Total 6.6 g/dL (6.4-8.2)
[2024-05-14 11:38] LABS: Influenza A Ag Negative; Influenza B Ag Negative; SARS-CoV-2 Antigen Rapid Res Negative (Negative)
--- NOTE | 2024-05-14 11:43 | EDPHYS ---
Physician Documentation [facility] Name: Saima Anders Age: 83 yrs Sex: Female : 1940 Arrival Date: 05/14/2024 Time: 09:42 Bed 14 Private MD: ED Physician Matt Sigala HPI: 05/14 09:52 This 83 yrs old Female presents to ER via Ambulatory with complaints of Cough, rn Shortness Of Breath. 09:52 The patient or guardian reports cough, difficulty breathing. Onset: The rn symptoms/episode began/occurred yesterday. Severity of symptoms: At their worst the symptoms were mild, in the emergency department the symptoms are unchanged. Modifying factors: The symptoms are alleviated by nothing, the symptoms are aggravated by nothing. Associated signs and symptoms: Pertinent positives: chest pain, fever, Pertinent negatives: diarrhea, vomiting. The patient has experienced similar episodes in the past. Patient reports cough and mild shortness of breath that began yesterday. Associated with left-sided chest pain when taking deep breath. Feels similar to previous episodes of pneumonia. No chronic lung problems. Is former smoker but does not require oxygen or nebulizer treatments.. Historical: - Allergies: 09:48 No Known Drug Allergies; ll1 - PMHx: 09:48 Basal cell cancer; Hypertensive disorder; Kidney stones; Pneumonia; ll1 - PSHx: 09:48 Gastric Bypass; hysterectomy; Wedge resection; ll1 - Immunization history:: Adult Immunizations up to date. - Infectious Disease History:: Denies. - Social history:: Smoking status: Patient/guardian denies using tobacco. - Family history:: not pertinent. - Hospitalizations: : No recent hospitalization is reported. ROS: 09:52 Constitutional: Positive for subjective fever and chills at home Cardiovascular: rn Negative for palpitations, and edema Respiratory: Positive for cough/shortness of breath Abdomen/GI: Negative for abdominal pain, nausea, vomiting, diarrhea, and constipation, MS/Extremity: Negative for injury and deformity, Skin: Negative for injury, rash, and discoloration, Neuro: Negative for headache, weakness, numbness, tingling, and seizure, Exam: 09:52 Constitutional: This is a well developed, well nourished patient who is awake, alert, rn and in no acute distress. Cardiovascular: Regular rate and rhythm. No pulse deficits. Respiratory: Mild tachypnea with crackles and rhonchi left lower lung field Abdomen/GI: Soft, non-tender MS/ Extremity: Pulses equal, no cyanosis. Neuro: Awake and alert, GCS 15 14:19 ECG was reviewed by the Attending Physician. rn Vital Signs: 09:49 BP 125 / 101; Pulse 91; Resp 18; Pulse Ox 93% on R/A; Weight 71.21 kg; Height 5 ft. 3 ll1 in. ; Pain 10/10; 12:00 BP 135 / 86; Pulse 78; Resp 16; Pulse Ox 94% ; db 13:20 BP 140 / 67; Pulse 84; Resp 16; Pulse Ox 97% on R/A; db 14:00 BP 127 / 57; Pulse 75; Resp 16; Pulse Ox 96% on R/A; db 15:00 BP 159 / 81; Pulse 87; Resp 16; Pulse Ox 97% on R/A; db 16:30 BP 147 / 66; Pulse 83; Resp 16; Pulse Ox 95% on R/A; db 09:49 Body Mass Index 27.81 (71.21 kg, 160.02 cm) ll1 09:49 Pain Scale: Adult ll1 MDM: 09:46 Medical Screening Exam initiated rn 11:41 Differential Diagnosis: Bronchitis Influenza Viral Syndrome Pneumonia. Data reviewed: rn vital signs, nurses notes, lab test result(s), radiologic studies, plain films, and as a result, I will admit patient. Consideration of Admission/Observation Patient was admitted/placed on observation. Escalation of care including admission/observation considered. Independent interpretation of the following test(s) in the Emergency Department EKG: See my EKG interpretation above X-Ray: My interpretation is Chest x-ray images show moderate-sized left mid pneumonia per my interpretation. Counseling: I had a detailed discussion with the patient and/or guardian regarding the historical points, exam findings, and any diagnostic results supporting the discharge/admit diagnosis, lab results, radiology results, the need for further work-up and treatment in the hospital. 05/14 09:51 Order name: Blood Culture Adult (2) rn 05/14 09:51 Order name: CBC with Diff; Complete Time: 14:19 rn 05/14 09:51 Order name: CMP; Complete Time: 11:41 rn 05/14 09:51 Order name: Lactate w/ 2H reflex if indic.; Complete Time: 11:41 rn 05/14 09:51 Order name: Protime (+inr); Complete Time: 11:41 rn 05/14 09:51 Order name: Ptt, Activated; Complete Time: 11:41 rn 05/14 09:51 Order name: COVID-19 Ag + Flu A+B Ag; Complete Time: 11:41 rn 05/14 11:23 Order name: CBC Smear Scan; Complete Time: 14:19 EDMS 05/14 11:42 Order name: Ghost Lactate-NO COLLECT Timer; Complete Time: 14:19 EDMS 05/14 15:25 Order name: Lactate Sepsis 2 HR Follow-up; Complete Time: 15:33 EDMS 05/14 09:46 Order name: XRAY Chest (1 view); Complete Time: 10:21 rn 05/14 14:40 Order name: CT; Complete Time: 15:33 EDMS 05/14 09:51 Order name: Accucheck; Complete Time: 13:59 rn 05/14 09:51 Order name: Cardiac monitoring; Complete Time: 12:21 rn 05/14 09:51 Order name: EKG - Nurse/Tech; Complete Time: 13:59 rn 05/14 09:51 Order name: IV Saline Lock - Large Bore; Complete Time: 12:14 rn 05/14 09:51 Order name: Labs collected and sent; Complete Time: 12:15 rn 05/14 09:51 Order name: O2 Per Protocol; Complete Time: 12:21 rn 05/14 09:51 Order name: O2 Sat Monitoring; Complete Time: 12:21 rn 05/14 09:51 Order name: Vital Signs; Complete Time: 12:21 rn EC:19 Rate is 84 beats/min. Rhythm is regular. QRS [place] is Normal. [place] interval is normal. QRS rn interval is normal. QT interval is normal. No Q waves. T waves are Normal. No ST changes noted. Clinical impression: NSR w/ Non-specific ST/T Changes. Interpreted by me. Reviewed by me. Administered Medications: 12:25 Drug: levofloxacin IVPB 500 mg 100 ml IVPB once over 60 mins Volume: 100 ml; Route: db IVPB; Infused Over: 60 mins; Site: right antecubital; 13:30 Follow up: Response: No adverse reaction; IV Status: Completed infusion; IV Intake: db 100ml 16:36 Drug: NS 0.9% IV 500 ml 500 ml IV at 1 bolus once; to be given as a bolus over 30 db minutes Volume: 500 ml; Route: IV; Rate: 1 bolus; Site: right antecubital; 17:24 Follow up: Response: No adverse reaction; IV Status: Infusion continued upon admission db Disposition Summary: 05/14/24 11:42 Hospitalization Ordered Notes: Hospitalization Status: Inpatient Admission rn Provider: Kevin Mercado rn Location: Telemetry/MedSurg (Inpatient) rn Condition: Stable rn Problem: new rn Symptoms: are unchanged rn Bed/Room Type: Standard rn Room Assignment: 230(05/14/24 15:32) bd Diagnosis - Pneumonia, unspecified organism rn - Hypoxemia rn Forms: - Medication Reconciliation Form rn - SBAR form rn - Leadership Thank You Letter rn Signatures: Dispatcher [employer] EDMS Dolores Naranjo Roman, MD MD rn Lewis, Lynsay, RN RN 1 Kaye Mixon RN RN db Corrections: (The following items were deleted from the chart) 09:51 09:51 BLOOD CULTURE*+BA.LAB.BRZ ordered. EDMS EDMS 09:51 09:51 CBC+H.LAB.BRZ ordered. EDMS EDMS 09:51 09:51 COMPREHENSIVE METABOLIC PANEL+C.LAB.BRZ ordered. EDMS EDMS 09:51 09:51 LACTATE+C.LAB.BRZ ordered. EDMS EDMS 09:51 09:51 PROTIME (+INR)+COAG.LAB.BRZ ordered. EDMS EDMS 09:51 09:51 PTT, ACTIVATED+COAG.LAB.BRZ ordered. EDMS EDMS 09:51 09:51 COVID-19 Ag + Flu A+B Ag+I.LAB.BRZ ordered. EDMS EDMS 09:51 09:48 Social history: Smoking status: Patient denies any tobacco usage or history of. ll1 ll1 12:48 12:48 Thorax W/ Con+CT.RAD.BRZ ordered. EDPA EDMS 15:32 11:42 rn bd
--- NOTE | 2024-05-14 11:43 | ER ---
Nurse's Notes [facility] Name: Saima Anders Age: 83 yrs Sex: Female : 1940 Arrival Date: 05/14/2024 Time: 09:42 Bed 14 Private MD: Diagnosis: Pneumonia, unspecified organism;Hypoxemia Presentation: 05/14 09:49 Chief complaint: Patient states: SOB started last night with pain to L rib cage area. + ll1 chills with some SOB. Coronavirus screen: Client denies travel out of the [place] in the last 14 days. cough unrelated to allergies, difficulty breathing, fatigue, fever. Ebola Screen: Patient denies travel to an Ebola-affected area in the 21 days before illness onset. Initial Sepsis Screen: Does the patient meet any 2 criteria? No. Patient's initial sepsis screen is negative. Does the patient have a suspected source of infection? No. Patient's initial sepsis screen is negative. Risk Assessment: Do you want to hurt yourself or someone else? Patient reports no desire to harm self or others. Onset of symptoms was May 13, 2024. 09:49 Method Of Arrival: Ambulatory ll1 09:49 Acuity: GARTH 2 ll1 Triage Assessment: 09:48 General: Appears uncomfortable, Behavior is calm, cooperative, appropriate for age. ll1 Pain: Complains of pain in L rib cage area Quality of pain is described as aching. Neuro: No deficits noted. Respiratory: Reports shortness of breath cough that is pain with cough Onset: The symptoms/episode began/occurred yesterday, the patient has moderate shortness of breath. Historical: - Allergies: 09:48 No Known Drug Allergies; ll1 - PMHx: 09:48 Basal cell cancer; Hypertensive disorder; Kidney stones; Pneumonia; ll1 - PSHx: 09:48 Gastric Bypass; hysterectomy; Wedge resection; ll1 - Immunization history:: Adult Immunizations up to date. - Infectious Disease History:: Denies. - Social history:: Smoking status: Patient/guardian denies using tobacco. - Family history:: not pertinent. - Hospitalizations: : No recent hospitalization is reported. Screenin:22 [facility] ED Fall Risk Assessment (Adult) History of falling in the last 3 months, db including since admission No falls in past 3 months (0 pts) Confusion or Disorientation No (0 pts) Intoxicated or Sedated No (0 pts) Impaired Gait No (0 pts) Mobility Assist Device Used No (0 pt) Altered Elimination No (0 pt) Score/Fall Risk Level 0 - 2 = Low Risk Oriented to surroundings, Maintained a safe environment. Abuse screen: Denies threats or abuse. Denies injuries from another. Nutritional screening: No deficits noted. Tuberculosis screening: No symptoms or risk factors identified. Assessment: 12:21 Reassessment: Patient appears in no apparent distress at this time. Patient and/or db family updated on plan of care and expected duration. Pain level reassessed. Patient is alert, oriented x 3, equal unlabored respirations, skin warm/dry/pink. General: Appears in no apparent distress. comfortable, Behavior is calm, cooperative. Neuro: Level of Consciousness is awake, alert, obeys commands, Oriented to person, place, time, situation. Cardiovascular: Rhythm is regular. Respiratory: Airway is patent Respiratory effort is even, unlabored, Respiratory pattern is regular, symmetrical, 13:04 Reassessment: Patient appears in no apparent distress at this time. Patient and/or db family updated on plan of care and expected duration. Pain level reassessed. Patient is alert, oriented x 3, equal unlabored respirations, skin warm/dry/pink. 16:37 Reassessment: Patient appears in no apparent distress at this time. Patient and/or db family updated on plan of care and expected duration. Pain level reassessed. Patient is alert, oriented x 3, equal unlabored respirations, skin warm/dry/pink. Patient states feeling better. Patient states symptoms have improved. Vital Signs: 09:49 BP 125 / 101; Pulse 91; Resp 18; Pulse Ox 93% on R/A; Weight 71.21 kg; Height 5 ft. 3 ll1 in. ; Pain 10/10; 12:00 BP 135 / 86; Pulse 78; Resp 16; Pulse Ox 94% ; db 13:20 BP 140 / 67; Pulse 84; Resp 16; Pulse Ox 97% on R/A; db 14:00 BP 127 / 57; Pulse 75; Resp 16; Pulse Ox 96% on R/A; db 15:00 BP 159 / 81; Pulse 87; Resp 16; Pulse Ox 97% on R/A; db 16:30 BP 147 / 66; Pulse 83; Resp 16; Pulse Ox 95% on R/A; db 09:49 Body Mass Index 27.81 (71.21 kg, 160.02 cm) ll1 09:49 Pain Scale: Adult ll1 ED Course: 09:44 Patient arrived in ED. mr 09:46 Matt Sigala MD is Attending Physician. rn 09:50 Triage completed. ll1 09:51 Arm band placed on. ll1 09:57 Patient placed in an exam room, on a stretcher. ll1 10:02 Oxygen administration via nasal cannula \T\ 2L/min. ll1 10:05 XRAY Chest (1 view) In Process Unspecified. EDMS 10:45 Inserted saline lock: 20 gauge in right antecubital area, using aseptic technique. am7 Blood collected. Flushed with 10 mL NS. 11:42 Kevin Mercado MD is Hospitalizing Provider. rn 12:12 Kaye Mixon RN is Primary Nurse. db 12:14 Warm blanket given. Verbal reassurance given. am7 12:[address] via stretcher. db 15:00 Repeat lab(s) drawn. by me, sent to lab. db 16:37 Patient has correct armband on for positive identification. Bed in low position. Call db light in reach. Side rails up X 1. Provided Education on: ADMISSION. Client placed on continuous cardiac and pulse oximetry monitoring. NIBP monitoring applied. front desk monitor on. Pulse ox on. NIBP on. 16:37 No provider procedures requiring assistance completed. Patient admitted, IV remains in db place. Administered Medications: 12:25 Drug: levofloxacin IVPB 500 mg 100 ml IVPB once over 60 mins Volume: 100 ml; Route: db IVPB; Infused Over: 60 mins; Site: right antecubital; 13:30 Follow up: Response: No adverse reaction; IV Status: Completed infusion; IV Intake: db 100ml 16:36 Drug: NS 0.9% IV 500 ml 500 ml IV at 1 bolus once; to be given as a bolus over 30 db minutes Volume: 500 ml; Route: IV; Rate: 1 bolus; Site: right antecubital; 17:24 Follow up: Response: No adverse reaction; IV Status: Infusion continued upon admission db Medication: 12:22 VIS not applicable for this client. db Intake: 13:30 IV: 100ml; Total: 100ml. db Outcome: 11:42 Decision to Hospitalize by Provider. rn 16:37 Admitted to Med/surg accompanied by nurse, room 230, on monitor, with chart, db 16:37 Condition: stable 16:37 Instructed on the need for admit, 17:24 Patient left the ED. db Signatures: Dispatcher [employer] EDDC Michaela Madrid, Reg Reg mr Matt Sigala MD MD rn Lewis, Lynsay, RN RN ll1 Kaye Mixon RN RN Dinora Posada am7 Corrections: (The following items were deleted from the chart) 09:50 09:49 BP 125 / 101; Pulse 91bpm; Resp 18bpm; Pulse Ox 93% RA; ll1 ll1 09:51 09:48 Social history: Smoking status: Patient denies any tobacco usage or history of. ll1 ll1
[2024-05-14] MEDS ORDERED: Levofloxacin500mg IV 500 MG/100 ML BAG IV ONE (12:00)
[2024-05-14 12:58] LABS: Blood Morphology Comment NOT SEEN (NOT SEEN); Platelet Estimate ADEQ; Platelets Clumped FEW; White Blood Cell Scan OK (OK)
--- NOTE | 2024-05-14 14:40 | RAD REPORT ---
EXAM: CT Thorax W/ Con CLINICAL INDICATION: Female, 83 years old. [facility] n/a DYSPNEA Bed Name: 14 N TECHNIQUE: Routine CT scan of the chest with intravenous contrast. One or more of the following dose reduction techniques were used: Automated exposure control, adjustment of the mA and/or kV according to patient size, and/or iterative reconstruction. Unless otherwise specified, incidental fi ndings do not require dedicated imaging follow-up. COMPARISON: 12/06/2022 CT chest. Chest radiograph 05/14/2024 FINDINGS: LUNGS: Airways are clear. Volume loss again seen in the left lung particularly involving the left low er lobe. Progressive patchy consolidative opacities sparing the upper segment lower lobe, and the central and anterior aspects of the upper lobe. Linear hyperdense probable suture line along the post erior aspect of the left upper lobe suggesting sequelae of prior resection. Loculated effusion component seen on the prior CT is no longer visualized. PLEURA: Small layering left pleural effusion. No pneumothorax. MEDIASTINUM AND LYMPH NODES: No mediastinal mass or fluid collection. Normal size mediastinal, hilar, and axillary lymph nodes. OSSEOUS STRUCTURES AND CHEST WALL: Intact. UPPER ABDOMEN: No significant abnormalities. Sequelae of gastric bypass again seen. IMPRESSION: Progressive consolidative opacities in the left lung as above, with a small layering pleural effusion , concerning for pneumonia.
[2024-05-14] MEDS ORDERED: NA CHLORIDE 0.9% 500 ML ONE (16:33)
[2024-05-14] MEDS ORDERED: IPRATROPIUM BROM 0.5MG/2.5ML NEB PRN (16:51)
[2024-05-14] MEDS ORDERED: ACETAMINOPHEN 500 MG TAB PO PRN (16:51)
[2024-05-14] MEDS ORDERED: ALBUTEROL 2.5 MG/3 ML NEB SOL NEB PRN (16:51)
[2024-05-14] MEDS ORDERED: ONDANSETRON 4 MG/2 ML VIAL IV PRN (16:51)
--- NOTE | 2024-05-14 17:37 | P.HP ---
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 SHE COMES WITH ONE DAY SS OF COUGH, YELLOW SPUTUM AND DYSPNEA. SHE HAS PNEUMONIA ON L SIDE OF LUNGS. Allergies No Known Drug Allergies Allergy (Unverified 03/13/14 16:35) Unknown Home medications list reviewed: Yes Home Medications: Calcium Carb, Citrate/Vit D3 [Citracal-D3 ER 600 mg-500 Unit] 1 tab PO DAILY 09/06/13 Multivit-Min/FA/Lycopene/Lut [Centrum Silver Tablet] 1 tab PO DAILY 09/06/13 Zolpidem Tartrate 5 mg PO BEDTIME PRN PRN 09/06/13 carvediloL [Coreg*] 12.5 mg PO BID 01/26/14 Amlodipine Besylate [Norvasc] 5 mg PO DAILY 12/08/22 Aspirin 81 mg PO DAILY 12/08/22 Cyanocobalamin (Vitamin B-12) [Cyanocobalamin Injection] 1,000 mg IM DIRECTED 12/08/22 Rosuvastatin Calcium [Crestor] 10 mg PO BEDTIME 12/08/22 Zolpidem Tartrate 5 mg PO BEDTIME 12/08/22 levoFLOXacin [Levaquin*] 500 mg PO DAILY #10 tab 12/10/22 - Past Medical/Surgical History Diabetic: No -: Hyperlipidemia -: GERD -: Stomach band/staple 1993 -: Gastric Bypass August 05, 2013 -: L. wrist fx -: Hysterectomy -: Abdomoplasty -: Wedge resection L. lung -: Basal cell CA (face and neck) -: Lumpectomy (L. breast) - Family History Family History: Reviewed- Non-Contributory - Social History Alcohol use: Yes CD- Drugs: No Caffeine use: No Review of Systems 10-point ROS is otherwise unremarkable General: Weakness Physical Examination - Physical Exam General: Mild distress HEENT: Atraumatic, PERRLA, Mucous membr. moist/pink, EOMI, Sclerae nonicteric Neck: Supple, 2+ carotid pulse no bruit, No LAD, Without JVD or thyroid abnormality Respiratory: Clear to auscultation bilaterally, Normal air movement Cardiovascular: Regular rate/rhythm, Normal S1 S2 Gastrointestinal: Normal bowel sounds, No tenderness Musculoskeletal: No tenderness Integumentary: No rashes Neurological: Normal gait, Normal speech, Normal strength at 5/5 x4 extr, Normal tone, Normal affect Lymphatics: No axilla or inguinal lymphadenopathy - Studies Laboratory Data (last 24 hrs) 05/14/24 05/14/24 05/14/24 10:58 10:58 10:58 WBC 6.30 Hgb 14.2 Hct 41.7 Plt Count 282 PT 11.1 INR 0.97 APTT 28.8 Sodium 128 L Potassium 4.1 BUN 16 Creatinine 1.05 H Glucose 110 H Total Bilirubin 0.8 AST 16 ALT 22 Alkaline Phosphatase 118 H Assessment and Plan - Problems (Diagnosis) (1) Bacterial pneumonia Current Visit: No Status: Acute Plan: SPUTUM CS IV LEVAQUIN NEBS PRN SHE SHOULD BE ABLE TO GO HOME IN AM. - Advance Directives Does patient have a Living Will: No Does patient have a Durable POA for Healthcare: No
[2024-05-14 17:56] VITALS: BMI 27.8
[2024-05-14] MEDS: NACHLORIDE 0.45% 1,000 ML IV SCH (18:21)
[2024-05-14] MEDS: carvediloL 12.5 MG TAB PO SCH (20:44)
[2024-05-14] MEDS: ROSUVASTATIN 10 MG TAB PO SCH (20:44)
[2024-05-14] MEDS: ZOLPIDEM TARTRATE 5 MG TABLET PO SCH (20:44)
[2024-05-15 05:49] LABS: Absolute Eosinophils 0.1 K/uL (0-0.5); Absolute Lymphocytes (CBC) 0.8 K/uL (0.7-4.9); Absolute Monocytes 0.7 K/uL (0.1-1.3); Absolute Neutrophil 8.7 K/uL (1.8-8.0); Basophils % 0.4 % (0-1.3); Eosinophils % 0.5 % (0-4.4); Hematocrit 33.4 % (36.0-45.0); Hemoglobin 11.5 g/dL (12.0-15.0); Lymphocytes % 7.7 % (15.3-44.8); MCH 32.7 pg (27.0-35.0); MCHC 34.6 g/dL (32.0-36.0); MCV 94.5 fL (80-100); MPV 7.2 fL (7.6-11.3); Monocytes % 6.8 % (3.3-12.3); Neutrophils % 84.6 % (41.7-73.7); Nucleated Red Blood Cells % 0.1 % (0-0); Platelets 203 thou/uL (152-406); RBC Red Blood Cell Count 3.53 M/uL (3.86-4.86); Red Cell Distribution Width 13.2 % (12.1-15.2)
[2024-05-15 08:47] VITALS: BP 165/72
[2024-05-15 08:54] VITALS: TEMP 98.1
[2024-05-15 09:55] VITALS: O2SAT 98
[2024-05-15] MEDS ORDERED: Levofloxacin500mg IV 500 MG/100 ML BAG IV SCH (11:00)
--- NOTE | 2024-05-15 13:10 | P.DS ---
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 SHE COMES WITH ONE DAY SS OF COUGH, YELLOW SPUTUM AND DYSPNEA. SHE HAS PNEUMONIA ON L SIDE OF LUNGS. Hospital Course: PEDRO HAS L SIDE PNEUMONIA. SHE HAS DONE GREAT WITH LEVAQUIN AND IS READY TO GO HOME. SHE HAS FU APT AT OFFICE. Vital Signs/Physical Exam: Temp Pulse Resp BP Pulse Ox 98.1 F 83 16 165/72 H 95 05/15/24 08:00 05/15/24 08:46 05/15/24 08:00 05/15/24 08:46 05/15/24 08:00 Laboratory Data at Discharge: WBC 10.30 thou/uL (4.3-10.9) 05/15/24 05:13 Hgb 11.5 g/dL (12.0-15.0) L D 05/15/24 05:13 Hct 33.4 % (36.0-45.0) L 05/15/24 05:13 Plt Count 203 thou/uL (152-406) D 05/15/24 05:13 PT 11.1 SECONDS (10-13.0) 05/14/24 10:58 INR 0.97 05/14/24 10:58 APTT 28.8 SECONDS (27.2-37.4) 05/14/24 10:58 Sodium 132 mEq/L (136-145) L D 05/15/24 05:13 Potassium 4.0 mEq/L (3.5-5.1) 05/15/24 05:13 BUN 13 mg/dL (7-18) 05/15/24 05:13 Creatinine 0.83 mg/dL (0.55-1.02) 05/15/24 05:13 Glucose 91 mg/dL (74-106) 05/15/24 05:13 Total Bilirubin 0.8 mg/dL (0.2-1.0) 05/14/24 10:58 AST 16 U/L (15-37) 05/14/24 10:58 ALT 22 U/L (13-56) 05/14/24 10:58 Alkaline Phosphatase 118 U/L (45-117) H 05/14/24 10:58 Home Medications: Calcium Carb, Citrate/Vit D3 [Citracal-D3 ER 600 mg-500 Unit] 1 tab PO DAILY 09/06/13 Multivit-Min/FA/Lycopene/Lut [Centrum Silver Tablet] 1 tab PO DAILY 09/06/13 carvediloL [Coreg*] 12.5 mg PO BID 01/26/14 Amlodipine Besylate [Norvasc] 5 mg PO DAILY 12/08/22 Cyanocobalamin (Vitamin B-12) [Cyanocobalamin Injection] 1,000 mg IM DIRECTED 12/08/22 Rosuvastatin Calcium [Crestor] 10 mg PO BEDTIME 12/08/22 Zolpidem Tartrate 5 mg PO BEDTIME 12/08/22 Losartan Potassium 50 mg PO ONCE 05/14/24 levoFLOXacin [Levaquin*] 500 mg IV DAILY 05/14/24 levoFLOXacin [Levaquin*] 500 mg PO DAILY #10 tab 05/15/24 New Medications: levoFLOXacin [Levaquin*] 500 mg PO DAILY #10 tab Followup: Kevin Mercado MD [Primary Care Provider] - 1-2 Weeks
--- NOTE | 2024-05-16 14:46 | EKG ---
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
== END 2024-05-15 09:52 | disposition home or self-care (01) | DRG 195 ==
LOC: ER 09:42 → ERHOLD 11:56 → 2ND 16:39
PROVIDERS: ADMIT Internal Medicine; ATTEND Internal Medicine
DX: J15.9 Unspecified bacterial pneumonia (principal); I10 Essential (primary) hypertension; M19.90 Unspecified osteoarthritis, unspecified site; K21.9 Gastro-esophageal reflux disease without esophagitis; Z90.3 Acquired absence of stomach [part of]; Z87.891 Personal history of nicotine dependence; Z90.710 Acquired absence of both cervix and uterus; Z90.49 Acquired absence of other specified parts of digestive tract; Z79.82 Long term (current) use of aspirin; Z79.899 Other long term (current) drug therapy; Z11.52 Encounter for screening for COVID-19
CPT/HCPCS: 36415; 71045; 71260; 80048; 80053; 83605; 85025; 85610; 85730; 87040; 87428; 93005; 94760; 96361; 96365; 99285; J7040; Q9967